=== PATIENT | male | born 1980 | race Native Hawaiian/Other Pacific Islander ===

== ENCOUNTER 2023-01-13 01:06 | Emergency (ER) | payer SELFPAY | END 2023-01-13 02:01 | disposition home or self-care (01) | LOC: FB.ED 01:06 | DX: L30.9 Dermatitis, unspecified (principal); F19.10 Other psychoactive substance abuse, uncomplicated; Z72.0 Tobacco use | CPT/HCPCS: 99282 ==

== ENCOUNTER 2023-01-16 15:58 | Emergency (ER) | payer SELFPAY ==
[2023-01-16] MEDS ORDERED: Ketorolac 30 MG/ML SDV IM STA (16:42)
== END 2023-01-16 17:07 | disposition home or self-care (01) ==
LOC: FB.ED 15:58
DX: T33.532A Superficial frostbite of left finger(s), initial encounter (principal); T33.531A Superficial frostbite of right finger(s), initial encounter; X31.XXXA Exposure to excessive natural cold, initial encounter
CPT/HCPCS: 96372; 99282; 99283; J1885